=== PATIENT | male | born 1990 | race African-American/Black ===

== ENCOUNTER 2016-06-10 16:20 | Emergency (ER) | payer BC ==
[~2016-06-10] VITALS: Ht 170.2 cm; Wt 104.3 kg
[~2016-06-10 16:20] MED LIST: NORCO 5-325 TA1 EACH PO
[2016-06-10 16:23] VITALS: BP 143/83
[2016-06-10] MEDS ORDERED: IBUPROFEN 600600 M1 PO (16:31)
== END 2016-06-10 17:07 | disposition home or self-care (01) ==
LOC: ER 16:20
DX: R68.84 Jaw pain (principal)